=== PATIENT | female | born 1945 | race Asian ===

== ENCOUNTER → 2017-01-08 | Outpatient (CLI) | payer OTHER, MEDICAID | END | disposition home or self-care (01) | LOC: CFH 13:00 | PROVIDERS: ATTEND Internal Medicine | DX: R07.89 Other chest pain (principal) | CPT/HCPCS: 71020 ==

== ENCOUNTER → 2017-01-12 | Outpatient (CLI) | payer OTHER, MEDICAID | END | disposition home or self-care (01) | LOC: CFH 09:22 | PROVIDERS: ATTEND Internal Medicine | DX: Z12.31 Encounter for screening mammogram for malignant neoplasm of breast (principal); M85.88 Other specified disorders of bone density and structure, other site; M81.0 Age-related osteoporosis without current pathological fracture; N64.4 Mastodynia | CPT/HCPCS: 77080; G0204 ==

== ENCOUNTER → 2017-01-25 | Outpatient (CLI) | payer OTHER, MEDICAID | END | disposition home or self-care (01) | LOC: CFH 10:40 | PROVIDERS: ATTEND Internal Medicine | DX: N64.4 Mastodynia (principal) ==

== ENCOUNTER → 2017-02-16 | Outpatient (CLI) | payer OTHER, MEDICAID | END | disposition home or self-care (01) | LOC: CFH 11:41 | PROVIDERS: ATTEND Internal Medicine | DX: M25.572 Pain in left ankle and joints of left foot (principal); M77.32 Calcaneal spur, left foot ==

== ENCOUNTER 2019-09-27 09:41 | Outpatient (CLI) | payer MEDICAID, MEDICARE ==
[2019-09-27] MEDS ORDERED: OMNIPAQUE 350 MG/ML, 100ML BOTTLE ONE (14:35)
== END 2019-09-27 23:59 | disposition home or self-care (01) ==
LOC: CFH 09:41
PROVIDERS: ATTEND Internal Medicine Gastroenterology
DX: K22.70 Barrett's esophagus without dysplasia (principal); R10.12 Left upper quadrant pain; R94.5 Abnormal results of liver function studies; M47.814 Spondylosis without myelopathy or radiculopathy, thoracic region
CPT/HCPCS: 71046; 74177; Q9967

== ENCOUNTER → 2020-07-16 | Outpatient (CLI) | payer MEDICARE, MEDICAID | END | disposition home or self-care (01) | LOC: CFH 07:16 | PROVIDERS: ATTEND Internal Medicine | DX: Z12.31 Encounter for screening mammogram for malignant neoplasm of breast (principal) | CPT/HCPCS: 77067 ==